=== PATIENT | female | born 1970 | race Caucasian/White ===

== ENCOUNTER 2018-11-12 16:31 | Emergency (ER) | payer MEDICAID ==
[~2018-11-12] VITALS: Ht 167.6 cm; Wt 70.3 kg
[~2018-11-12 16:31] MED LIST: AMITRIPTYLINE H10 M3 PO; CARISOPRODOL 3350 MG PO; ERYTHROMYCIN E3.5 G1 OPHTHALMIC; KLONOPIN0.5 MG PO; LEVOTHYROXIN0.088 MG PO; LEVOTHYROXINE 0.1 MG PO; LIDOCAINE VISC100 M1 SWISH&SPIT; NORCO 5-325 TA1 EAC1 PO; NORCO 5-325 TA1 EACH PO; PROPRANOLOL 8080 MG PO; RISPERDAL0.5 MG PO
[2018-11-12] MEDS ORDERED: ZANAFLEX2 MG PO (16:43)
[2018-11-12] MEDS ORDERED: DEPAKOTE500 MG PO (16:44)
[2018-11-12] MEDS ORDERED: NABUMETONE 750750 M1 PO (19:02)
[2018-11-12] MEDS ORDERED: NORCO 5-325 TA1 EACH PO (19:02)
[2018-11-12 19:23] VITALS: BP 144/95
== END 2018-11-12 19:28 | disposition home or self-care (01) ==
LOC: M.ERS 16:31
DX: M65.4 Radial styloid tenosynovitis [de Quervain] (principal); G43.909 Migraine, unspecified, not intractable, without status migrainosus; E03.9 Hypothyroidism, unspecified; I10 Essential (primary) hypertension